=== PATIENT | male | born 1955 | race Asian ===

== ENCOUNTER 2020-12-08 08:36 | Emergency (ER) | payer MEDICARE, OTHER ==
[~2020-12-08] VITALS: Ht 167.6 cm; Wt 77.3 kg
[~2020-12-08 08:36] MED LIST: ALLO100T PO; ASPI-989 PO; CARV3 PO; HYDR12.54 PO; LISI10TA24 PO; PRAS10TA6 PO
[2020-12-08 08:42] VITALS: BP 145/85
[2020-12-08] MEDS ORDERED: METF-960 PO (08:45)
[2020-12-08] MEDS ORDERED: ACETAMINOPHEN 325 MG TABLET PO ONE (09:15)
[2020-12-08] MEDS ORDERED: INDOMETHACIN 50 MG CAPSULE PO ONE (09:15)
== END 2020-12-08 09:27 | disposition home or self-care (01) ==
LOC: EMS 08:36
DX: M10.9 Gout, unspecified (principal); I10 Essential (primary) hypertension; I25.10 Atherosclerotic heart disease of native coronary artery without angina pectoris; Z79.82 Long term (current) use of aspirin; Z79.899 Other long term (current) drug therapy
CPT/HCPCS: 82962; 99283